=== PATIENT | male | born 1985 | race Caucasian/White ===

== ENCOUNTER 2016-09-18 07:08 | Emergency (ER) | payer OTHER ==
[~2016-09-18] VITALS: Ht 190.5 cm; Wt 119.0 kg
[2016-09-18 07:11] VITALS: Ht 190.5 cm; Wt 119.0 kg
[2016-09-18] MEDS ORDERED: KETOROLAC 30 MG INJ IM STA (08:01)
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
[2016-09-18] MEDS ORDERED: IBUP-1542 PO (09:25)
[2016-09-18] MEDS ORDERED: CYCL-319 PO (09:25)
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
== END 2016-09-18 09:40 | disposition home or self-care (01) ==
LOC: FTE 07:08
DX: S19.9XXA Unspecified injury of neck, initial encounter (principal); S09.90XA Unspecified injury of head, initial encounter; V49.49XA Driver injured in collision with other motor vehicles in traffic accident, initial encounter
CPT/HCPCS: 72040; 96372; J1885; Z7502

== ENCOUNTER 2016-10-29 07:31 | Emergency (ER) | payer OTHER ==
[~2016-10-29] VITALS: Wt 105.0 kg
[~2016-10-29 07:31] MED LIST: CYCL-319 PO; IBUP-1542 PO
[2016-10-29] MEDS ORDERED: ONDANSETRON (ODT) 4 MG TAB ODT STA (08:43)
[2016-10-29] MEDS ORDERED: IBUPROFEN 800 MG TAB PO ONE (09:00)
[2016-10-29] MEDS ORDERED: IBUP-1542 PO (09:14)
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
== END 2016-10-29 09:21 | disposition home or self-care (01) ==
LOC: FTE 07:31
DX: M54.2 Cervicalgia (principal); G44.219 Episodic tension-type headache, not intractable; M62.838 Other muscle spasm
CPT/HCPCS: Z7502; Z7610; 99283

== ENCOUNTER 2018-04-02 07:51 | Emergency (ER) | END 2018-04-02 08:43 | disposition home or self-care (01) ==

== ENCOUNTER 2018-05-25 11:08 | Emergency (ER) | END 2018-05-25 11:59 | disposition home or self-care (01) ==

== ENCOUNTER 2018-06-08 05:58 | Emergency (ER) | END 2018-06-08 08:54 | disposition home or self-care (01) ==